=== PATIENT | female | born 1950 | race Hispanic/Latino ===

== ENCOUNTER 2019-07-11 19:03 | Emergency (ER) | payer MEDICARE ==
[2019-07-11] MEDS ORDERED: ACETAMINOPHEN EXTRA STRENGTH 500 MG TABLET ONE (19:27)
== END 2019-07-11 20:43 | disposition home or self-care (01) ==
LOC: EDH 19:03
DX: S20.211A Contusion of right front wall of thorax, initial encounter (principal); V89.2XXA Person injured in unspecified motor-vehicle accident, traffic, initial encounter; Y93.89 Activity, other specified; Y92.488 Other paved roadways as the place of occurrence of the external cause; Y99.8 Other external cause status
CPT/HCPCS: 71046; 93005